=== PATIENT | female | born 1995 | race Hispanic/Latino ===

== ENCOUNTER → 2018-12-04 09:14 | Outpatient (CLI) | payer OTHER, MEDICAID, SELFPAY ==
--- NOTE | 2018-12-04 09:16 | DI.US.S_ITS ---
PROCEDURE: US OB <= 14 WEEKS FETUS INDICATIONS: DATES OUTSIDE/PRIOR DATING DATA: Last menstrual period (LMP): 10/09/18. LMP-based estimated date of delivery (ZAIRA): 07/16/19. First dating scan (date and location): 12/04/18, this examination. Estimated date of delivery (ZAIRA) from first dating scan: 07/21/19. TECHNIQUE: Real-time scanning was performed of the fetus and maternal pelvic organs, with image documentation. Endovaginal scanning was also performed to better visualize the fetus and maternal ovaries. COMPARISON: None. FINDINGS: Embryo: Single living intrauterine fetus is present with a crown-rump length measuring 1.1 cm, 7 weeks 2 days. Heart rate measures 145 beats per minute. Yolk sac visualized Measurement variability in dating: +/- 4 weeks by LMP, +/- 7 days by mean sac diameter (use before 6 weeks gestation if crown-rump length not able to be measured), +/- 5 days by crown-rump length (up to 8 weeks 6 days gestation), +/- 7 days by crown-rump length (up to 13 weeks 6 days gestation). Maternal organs: Ovaries unremarkable except for a presumed right-sided corpus luteum. Limited images through the kidneys demonstrate no hydronephrosis. IMPRESSION: Single living intrauterine fetus with gestational age of 7 weeks and 2 days by today's ultrasound measurements. This corresponds to an ZAIRA of 07/21/19, concordant with the patient's LMP as above. Dictated by: Mike Dunbar M.D. on 12/04/2018 at 10:49 Approved by: Mike Dunbar M.D. on 12/04/2018 at 10:52
== END ==
PROVIDERS: PCP Family Medicine; Visit Provider Specialist
DX: Z34.81 Encounter for supervision of other normal pregnancy, first trimester (principal); Z3A.01 Less than 8 weeks gestation of pregnancy
CPT/HCPCS: 76801

== ENCOUNTER → 2019-02-06 14:56 | Outpatient (CLI) | payer OTHER, MEDICAID, SELFPAY ==
[2019-02-06 15:26] LABS: Appearance Urine UA CLEAR; Bilirubin Urine UA NEGATIVE (NEGATIVE); Color Urine UA YELLOW; Glucose Urine UA NEGATIVE (Negative); Ketones Urine UA NEGATIVE (NEGATIVE); Leukocyte Esterase Urine UA NEGATIVE (NEGATIVE); Nitrite Urine UA NEGATIVE (Negative); Occult Blood Urine UA NEGATIVE (Negative); Protein Urine UA NEGATIVE (Negative); Specific Gravity Urine UA 1.015 (1.000-1.035); Urobilinogen Urine UA 0.2 E.U./dL (0.2)
[2019-02-06 15:29] LABS: Add Manual Diff / Slide Review NO; Basophils Absolute Auto 0 /uL (0-100); Basophils Percent Auto 0.3 % (0-2); Eosinophils Absolute Auto 100 /uL (0-450); Eosinophils Percent Auto 0.8 % (2-4); Hematocrit 35.4 % (36-46); Hemoglobin 11.8 g/dL (12.0-16.0); Lymphocytes Absolute Auto 3100 /uL (1100-4500); Lymphocytes Percent Auto 35.6 % (25-40); Mean Corpuscular HGB Conc 33.3 % (30-36); Mean Corpuscular Hemoglobin 26.9 PG (26-34); Mean Corpuscular Volume 80.8 fL (80-100); Monocytes Absolute Auto 700 /uL (0-900); Monocytes Percent Auto 8.4 % (3-14); Neutrophils Absolute Auto 4800 /uL (1500-7000); Neutrophils Percent Auto 54.9 % (50-75); Platelet Count 256 X10^3/uL (150-400); Red Blood Cell Count 4.38 X10^6/uL (4.0-5.2); Red Cell Distribution Width 13.8 % (11.6-14.8); White Blood Cell Count 8.7 X10^3/uL (4.5-11.0)
[2019-02-06 18:29] LABS: HIV 1 & 2 Ab/Ag 4th Gen Combo NEGATIVE (NEGATIVE); Hep C Virus Ab w/Reflex Quant NEGATIVE s/c (NEGATIVE); Hepatitis B Surface Antigen NEGATIVE s/c (NEGATIVE); Rubella Antibody IgG 64.3 IU/mL (>15)
[2019-02-26 11:33] LABS: RPR Screen NONREACTIVE
== END ==
PROVIDERS: PCP Family Medicine; Visit Provider Specialist
DX: Z34.81 Encounter for supervision of other normal pregnancy, first trimester (principal)
CPT/HCPCS: 36415; 80055; 81003; 82105; 82677; 84702; 86336; 86787; 86803; 86850; 86900; 86901; 87086; 87389

== ENCOUNTER → 2019-03-04 13:56 | Outpatient (CLI) | payer OTHER, MEDICAID, SELFPAY ==
--- NOTE | 2019-03-04 13:57 | DI.US.S_ITS ---
PROCEDURE: US OB >= 14 WEEKS FETUS INDICATIONS: ANATOMY OUTSIDE/PRIOR DATING DATA: Last menstrual period (LMP): 10/09/18. LMP-based estimated date of delivery (ZAIRA): 07/16/2019. First dating scan (date and location): 12/04/18. Estimated date of delivery (ZAIRA) from first dating scan: 07/21/2019. TECHNIQUE: Real-time scanning was performed of the fetus, with image documentation and biometric measurements. Endovaginal scanning: Not performed COMPARISON: [facility], , OB >= 14 WEEKS FETUS, 02/06/2019, 14:51. FINDINGS: General: A single living intrauterine gestation is present. Presentation: Breech Placenta: Placental position is anterior, without previa. Amniotic fluid index: 25 cm, normal range is 5-24 cm. heart rate: 139 beats per minute. Maternal cervical canal: 3.7 cm long. Normal lower limit is 2.5 cm. biometrics: Biparietal diameter: 5.0 cm, correlating with 21 weeks and 1 day. Head circumference: 19.3 cm, correlating with 21 weeks and 4 days. Abdominal circumference: 15.6 cm, correlating with 20 weeks and 6 days Femur length: 3.5 cm, correlating with 20 weeks and 6 days Estimated gestational age from initial scan: not applicable. Composite gestational age from present scan: 21 weeks and 1 day Estimated weight and percentile: 385 [address] the fetus within the 85th percentile. The Anatomic survey: Neuro: Ventricles are non-dilated at less than 10 mm. Cisterna magna is normal at 3-11 mm. Cerebellum is normal in size and morphology. Nuchal skin fold: Normal at less than 6 mm between 14-21 weeks gestational age. Face: Nose and lips, facial profile are normal. Spine: No evidence for spina bifida. Heart: 4-chambered heart is present, with normal ventricular outflow tracts. Diaphragm: Diaphragm is intact. Stomach: Left-sided stomach is present. Kidneys: No hydronephrosis. Normal is less than 5 mm in 2nd trimester, less than 7 mm in 3rd trimester. Cord: 3-vessel cord has orthotopic insertion. Bladder: Normal in size. Extremities: All 4 extremities identified. IMPRESSION: Single living intrauterine gestation with an estimated sonographic gestational age of approximately 21 weeks and 1 day versus approximately 20 weeks and 1 day by initial staging. Dating measurements remain concordant. Estimated weight measuring 385 g which places the fetus within the 85th percentile by [place] standards. Normal second trimester anatomic screening survey. Dictated by: Matt Vick M.D. on 03/04/2019 at 17:38 Approved by: Matt Vick M.D. on 03/04/2019 at 17:47
== END ==
PROVIDERS: PCP Family Medicine; Visit Provider Specialist
DX: Z34.82 Encounter for supervision of other normal pregnancy, second trimester (principal); Z3A.21 21 weeks gestation of pregnancy
CPT/HCPCS: 76811

== ENCOUNTER 2019-04-15 18:08 | Outpatient (CLI) | payer OTHER, MEDICAID, SELFPAY ==
[2019-04-15 18:57] LABS: Bacteria Urine Many (>30); Mucus Urine 1+ (Negative); RBC Urine 1-5/HPF (0-5/HPF); Squamous Epithelial Cell Urine >30 /HPF (0-5/HPF); Transitional Epi Cells Urine 5-10/HPF (0-5/HPF); WBC Urine 1-5/HPF (0-5/HPF)
[2019-04-15 18:58] LABS: Appearance Urine UA SL CLOUDY; Bilirubin Urine UA NEGATIVE (NEGATIVE); Color Urine UA YELLOW; Culture Indicated Urine Cult Not Indicated; Glucose Urine UA 1+ g/dL (Negative); Ketones Urine UA NEGATIVE (NEGATIVE); Leukocyte Esterase Urine UA NEGATIVE (NEGATIVE); Nitrite Urine UA NEGATIVE (Negative); Occult Blood Urine UA NEGATIVE (Negative); Protein Urine UA NEGATIVE (Negative); Specific Gravity Urine UA 1.015 (1.000-1.035); Urine Comments NOT A CLEAN CATCH; Urobilinogen Urine UA 0.2 E.U./dL (0.2)
--- NOTE | 2019-04-15 20:36 | P.TNLD_ITS ---
Visit Information Visit Information Date of evaluation: 04/15/19 Primary OB Provider: Rhonda Beckwith On-call OB Provider: Romelia Barnhart Reason for Evaluation: Yes other Comments/Additional reasons for admission: Patient having pelvic pressure PFSH Social History marital status: pets and animals: No education level: high school seatbelt use: always helmet use: Yes working smoke detector in home: Yes fire extinguisher in home: Yes carbon monox detector in home: No firearms in home: Yes Smoking Status: Never smoker during the past year weight has: increased > 10 lbs well-balanced diet: about half the time daily servings fruits/ve-1 caffeine: Yes eating out: 1-3 times/week Exam Vital Signs (past 8 hours): Generally: No acute distress Objective Labs Labs: Laboratory Results - last 24 hr 04/15/19 04/15/19 18:15 18:15 Urine Color Yellow Urine Appearance Sl cloudy Urine pH 7.0 Ur Specific [place] 1.015 Urine Protein Negative Urine Glucose (UA) 1+ H Urine Ketones Negative Urine Occult Blood Negative Urine Nitrate Negative Urine Bilirubin Negative Urine Urobilinogen 0.2 Ur Leukocyte Esterase Negative Urine RBC Cancelled 1-5/hpf Urine WBC Cancelled 1-5/hpf Ur Squamous Epith Cells Cancelled >30 /hpf H Ur Transition Epith Cell Cancelled 5-10/hpf H Ur Renal Epithelial Cell Cancelled Calcium Oxalate Crystal Cancelled Uric Acid Crystals Cancelled Triple Phos Crystals Cancelled Other Crystals Cancelled Amorphous Sediment Cancelled Urine Bacteria Cancelled Many (>30) H Hyaline Casts Cancelled Granular Casts Cancelled RBC Casts Cancelled WBC Casts Cancelled Other Casts Cancelled Urine Mucus Cancelled 1+ H Urine Trichomonas Cancelled Urine Yeast Cancelled Urine Sperm Cancelled Ur Culture Indicated? Cancelled Cult not indicated Micro UA Comment Cancelled Not a clean catch Evaluation Evaluation Baseline heart rate: 145 Variability: Moderate (11-25) monitor accelerations: Present monitor decelerations: Variable Contraction Frequency (minutes): 0 Category of Tracing: I Laboratory results: Laboratory Tests 04/15/19 04/15/19 18:15 18:15 Urine Color Yellow Urine Appearance Sl cloudy Urine pH 7.0 Ur Specific [place] 1.015 Urine Protein Negative Urine Glucose (UA) 1+ H Urine Ketones Negative Urine Occult Blood Negative Urine Nitrate Negative Urine Bilirubin Negative Urine Urobilinogen 0.2 Ur Leukocyte Esterase Negative Urine RBC Cancelled 1-5/hpf Urine WBC Cancelled 1-5/hpf Ur Squamous Epith Cells Cancelled >30 /hpf H Ur Transition Epith Cell Cancelled 5-10/hpf H Ur Renal Epithelial Cell Cancelled Calcium Oxalate Crystal Cancelled Uric Acid Crystals Cancelled Triple Phos Crystals Cancelled Other Crystals Cancelled Amorphous Sediment Cancelled Urine Bacteria Cancelled Many (>30) H Hyaline Casts Cancelled Granular Casts Cancelled RBC Casts Cancelled WBC Casts Cancelled Other Casts Cancelled Urine Mucus Cancelled 1+ H Urine Trichomonas Cancelled Urine Yeast Cancelled Urine Sperm Cancelled Ur Culture Indicated? Cancelled Cult not indicated Micro UA Comment Cancelled Not a clean catch Diagnosis, Plan/Disposition Plan/Disposition Plan: Assessment: 23-year-old at 27 weeks gestation with pelvic pressure No signs of labor Plan: Discharge to home Follow-up with Dr. Beckwith as scheduled Signs and symptoms of labor reviewed OB Disposition: home
== END 2019-04-15 19:19 | disposition home or self-care (01) ==
LOC: LABOR 18:31 → OB 04-18 09:01
PROVIDERS: Obstetrics & Gynecology; PCP Family Medicine; Visit Provider Specialist
DX: O47.02 False labor before 37 completed weeks of gestation, second trimester (principal); Z3A.26 26 weeks gestation of pregnancy
CPT/HCPCS: 59025; 81001; G0378; G0379

== ENCOUNTER → 2019-04-26 08:06 | Outpatient (CLI) | payer OTHER, MEDICAID, SELFPAY ==
[2019-04-26 09:59] LABS: Hematocrit 32.7 % (36-46); Hemoglobin 10.4 g/dL (12.0-16.0)
[2019-04-26 10:38] LABS: GTT (PREG) 1 Hour PP 50gm Dose 184 mg/dL (76-139)
== END ==
PROVIDERS: PCP Family Medicine; Visit Provider Specialist
DX: Z34.82 Encounter for supervision of other normal pregnancy, second trimester (principal); Z3A.26 26 weeks gestation of pregnancy
CPT/HCPCS: 36415; 82950; 85014; 85018

== ENCOUNTER → 2019-05-10 07:54 | Outpatient (CLI) | payer OTHER, MEDICAID, SELFPAY ==
[2019-05-10 09:23] LABS: Glucose Fasting 91 mg/dL (70-100)
[2019-05-10 11:00] LABS: Glucose 1 Hour 179 mg/dL (70-170)
[2019-05-10 11:18] LABS: Glucose Tol Interpretation INTERPRETATION
[2019-05-10 12:08] LABS: Glucose 2 Hour 132 mg/dL (70-140)
[2019-05-10 13:13] LABS: Glucose 3 Hour 129 mg/dL (70-115)
== END ==
PROVIDERS: PCP Family Medicine; Visit Provider Specialist
DX: O99.810 Abnormal glucose complicating pregnancy (principal); Z34.92 Encounter for supervision of normal pregnancy, unspecified, second trimester
CPT/HCPCS: 36415; 82951; 82952

== ENCOUNTER → 2019-06-05 10:51 | Outpatient (CLI) | payer OTHER, MEDICAID, SELFPAY ==
[2019-06-08 14:54] LABS: Bile Acids, Total 8 umol/L (< 20)
== END ==
PROVIDERS: PCP Family Medicine; Visit Provider Specialist
DX: O99.719 Diseases of the skin and subcutaneous tissue complicating pregnancy, unspecified trimester (principal); Z34.93 Encounter for supervision of normal pregnancy, unspecified, third trimester; L29.9 Pruritus, unspecified
CPT/HCPCS: 36415; 82239

== ENCOUNTER → 2019-06-14 17:01 | Outpatient (CLI) | payer OTHER, MEDICAID, SELFPAY ==
[2019-06-15 13:18] LABS: Strep Grp B PCR NEG for Grp B Strep
== END ==
PROVIDERS: PCP Family Medicine; Visit Provider Specialist
DX: Z3A.35 35 weeks gestation of pregnancy (principal)
CPT/HCPCS: 87653

== ENCOUNTER 2019-07-07 22:21 | Inpatient (IN) | payer OTHER, MEDICAID, SELFPAY ==
[2019-07-07] MEDS: LACTATED RINGERS 1,000 ML 100 ML IV (23:00)
[2019-07-07 23:57] LABS: Add Manual Diff / Slide Review NO; Basophils Absolute Auto 100 /uL (0-100); Basophils Percent Auto 0.7 % (0-2); Eosinophils Absolute Auto 100 /uL (0-450); Eosinophils Percent Auto 0.8 % (2-4); Hematocrit 28.9 % (36-46); Hemoglobin 9.3 g/dL (12.0-16.0); Lymphocytes Absolute Auto 3100 /uL (1100-4500); Lymphocytes Percent Auto 32.7 % (25-40); Mean Corpuscular HGB Conc 32.3 % (30-36); Mean Corpuscular Hemoglobin 22.4 PG (26-34); Mean Corpuscular Volume 69.3 fL (80-100); Monocytes Absolute Auto 800 /uL (0-900); Monocytes Percent Auto 8.3 % (3-14); Neutrophils Absolute Auto 5500 /uL (1500-7000); Neutrophils Percent Auto 57.5 % (50-75); Platelet Count 227 X10^3/uL (150-400); Red Blood Cell Count 4.18 X10^6/uL (4.0-5.2); White Blood Cell Count 9.6 X10^3/uL (4.5-11.0)
[2019-07-08 00:58] VITALS: BP 130/75
[2019-07-08] MEDS: FENT 2MCG/ML BUPIV 0.125% EPI 200 MCG/100 ML PLAST..BAG 8 MCG EPIDURAL (02:39)
--- NOTE | 2019-07-08 04:33 | P.HPOB_ITS ---
OB HPI Date/Time Date of admission: 07/08/19 Date Patient Seen: 07/08/19 Time Patient Seen: 04:34 History of Present Condition Chief complaint: EVAL OF LABOR : 4 Para: 2 Estimated Date of Delivery: 07/16/19 Estimated Gestational Age (weeks): 38 Narrative: Dipti Gallagher is a 23 year old female admitted in active labor History of Present care: good care, initiated at week # (11), number of visits (10) and pounds weight gain (15) Dating criteria: LMP confirmed by 1st trimester US Ultrasounds: normal mid trimester US Obstetrical complications: none Medical complications: none Preadmission Labs Blood type: O (+) positive -: Antibody screen: negative, GBS status: negative, HBsAG: negative, HIV: negative and RPR/VDLR: negative -: Chlamydia screen: not detected and Gonorrhea screen: not detected -: Rubella: immune and Varicella: immune HCAB: negative PAP: Normal Quad screen: Normal 1 hr GTT: 184 3 hr GTT: 1 hr (179), 2 hr (132) and 3 hr (129) Fasting blood glucose: 91 Prior (ies) History: 05/04/2015 40 week gestation 6 lb 11 oz male infant 07/17/2016 38 weeks gestation 7 lb male Evaluation Evaluation Baseline heart rate: 135 Variability: Moderate (11-25) monitor accelerations: Present monitor decelerations: Early Contraction Frequency (minutes): 3 Uterine Contraction Intensity: Moderate Category of Tracing: I Cervical dilation (cm): 7 Cervical effacement (%): 100 station: -1 Laboratory results: Laboratory Tests 07/07/19 07/07/19 23:00 23:00 WBC 9.6 RBC 4.18 Hgb 9.3 L Hct 28.9 L MCV 69.3 L MCH 22.4 L MCHC 32.3 RDW 19.0 H Plt Count 227 Neut % (Auto) 57.5 Lymph % (Auto) 32.7 [place] % (Auto) 8.3 Eos % (Auto) 0.8 L Baso % (Auto) 0.7 Neut # (Auto) 5500 Lymph # (Auto) 3100 [place] # (Auto) 800 Eos # (Auto) 100 Baso # (Auto) 100 Blood Type O Positive Antibody Screen Negative PFSH Social History marital status: pets and animals: No education level: high school seatbelt use: always helmet use: Yes working smoke detector in home: Yes fire extinguisher in home: Yes carbon monox detector in home: No firearms in home: Yes Smoking Status: Never smoker during the past year weight has: increased > 10 lbs well-balanced diet: about half the time daily servings fruits/ve-1 caffeine: Yes eating out: 1-3 times/week Meds Home Medications and Allergies Home Medications Medication Instructions Recorded Confirmed Type prenat.vits,nick,[id number] 1 tab PO DAILY 12/06/18 07/07/19 History Allergies Allergy/AdvReac Type Severity Reaction Status Date / Time No Known Drug Allergies Allergy Verified 12/25/18 16:12 Review of Systems Review of Systems Narrative: Good movement. No headaches, scotomata, epigastric pain. Spontaneous rupture membranes clear fluid. ROS Unobtainable: All systems reviewed & are unremarkable except as noted in HPI and below Exam Vital Signs (past 8 hours): Blood pressure 99/51, pulse of 89, temperature 36.7?- 07/08/19 00:58 Blood Pressure 130/75 Narrative Exam Narrative: HEENT exam within normal limits. Lungs are clear to auscultation and percussion. Heart is regular rate and rhythm no S3-S4 or murmurs. Abdomen is gravid. Extremities without edema and nontender. Objective Labs Result Diagrams: 07/07/19 23:00 Labs: Laboratory Results - last 24 hr 07/07/19 07/07/19 23:00 23:00 WBC 9.6 RBC 4.18 Hgb 9.3 L Hct 28.9 L MCV 69.3 L MCH 22.4 L MCHC 32.3 RDW 19.0 H Plt Count 227 Neut % (Auto) 57.5 Lymph % (Auto) 32.7 [place] % (Auto) 8.3 Eos % (Auto) 0.8 L Baso % (Auto) 0.7 Neut # (Auto) 5500 Lymph # (Auto) 3100 [place] # (Auto) 800 Eos # (Auto) 100 Baso # (Auto) 100 Blood Type O Positive Antibody Screen Negative Assessment and Plan Assessment and Plan Assessment and Plan narrative: 38 week gestation in active labor. Anticipate vaginal delivery.
[2019-07-08] MEDS: LACTATED RINGERS 1,000 ML 100 ML IV (04:57)
--- NOTE | 2019-07-08 06:12 | PM.OBPRVD ---
Labor & Delivery Delivery date: 07/08/19 Intrapartal events: None Delivery monitor: external FHT and external uterine Route of delivery: L&D Laceration Description: Labial (Left small tear near the clitoris) Delivery repair: chromic (4 0) Estimated blood loss (mL): 100 Anesthesia type: Epidural Narrative: Patient arrived on Labor and delivery in active labor. She received an epidural catheter for pain control. heart tones category 1 to category 2 throughout labor. She delivered spontaneously, over an intact perineum. The viable male infant was placed on maternal abdomen. After the cord stopped pulsating the cord was clamped, cut, and cord bloods obtained. Placenta delivered spontaneously, intact, 3 vessels. There were no cervical, vaginal, or perineal tears. A left labial tear near her clitoris was repaired with a 4 0 chromic suture. Both infant and mother doing well. Baby 1: Infant gender: Male Presentation: vertex position: Right Occiput Anterior Placenta delivery description: Spontaneous cord vessel description: 3 Vessels score (1 min): 9 score (5 min): 9 Plan for aftercare: Routine care
--- NOTE | 2019-07-08 06:17 | P.PCNOB_ITS ---
Labor & Delivery Delivery date: 07/08/19 Intrapartal events: None Estimated blood loss (mL): 100 Anesthesia type: Epidural [place] Baby 1: gender: Male Presentation: vertex position: Right Occiput Anterior Placenta delivery description: Spontaneous cord vessel description: 3 Vessels score (1 min): 9 score (5 min): 9
[2019-07-08 06:39] LABS: Anisocytosis 2+; Microcytosis 1+
[2019-07-08] MEDS: DOCUSATE 100 MG CAPSULE PO (09:57)
[2019-07-08] MEDS: FERROUS GLUCONATE 324 MG TABLET PO (09:57)
[2019-07-08] MEDS: IBUPROFEN 600 MG TABLET PO ×3 (09:57→22:03)
[2019-07-08] MEDS: LANOLIN OINT 7 GM 1 APPLIC TOP (14:41)
[2019-07-09] MEDS: IBUPROFEN 600 MG TABLET PO (04:01)
[2019-07-09 07:07] LABS: Hematocrit 26.2 % (36-46); Hemoglobin 8.3 g/dL (12.0-16.0)
--- NOTE | 2019-07-09 08:41 | PM.OBDS.1 ---
Discharge Providers Provider Date of admission: 07/07/19 22:21 Discharge Date: 07/09/19 Primary care physician: Mar Rodriguez DO Consults: 07/07/19 23:44 Consult to Anesthesiology Urgent Comment: Consulting Provider: Anesthesiologist Reason for consultation: Epidural Has provider been notified: No 07/09/19 06:11 Consult to Ingredient Scaler Helper Routine Comment: Discharge provider: Rhonda Beckwith MD Summary Hospital Course Date Patient Seen: 07/09/19 Time Patient Seen: 08:42 Procedures: Epidural catheter, vaginal delivery, repair of labial tear Hospital Course: Patient arrived on Labor and delivery in active labor. She received an epidural catheter for pain control. She had a spontaneous vaginal delivery of a viable male infant. She had a labial tear that was repaired. She did well was breast-feeding without difficulty, ambulatory, minimal pain. No headaches, scotomata, epigastric pain Peripartum Data Delivery Method: Natural Vaginal Laceration description: Labial (Left) Procedures: Epidural catheter, spontaneous vaginal delivery, repair of labial tear. complications: none [place] 1: Gender: Male Disposition of : home Discharge Diagnosis (1) Vaginal delivery: Status: Acute (2) Chronic anemia: Status: Acute Status at Discharge Cognitive/behavioral status at discharge: oriented Functional status at discharge: independent ambulation Overall status at discharge: patient is progressing back to baseline Time Spent with Patient Time attestation: Total time spent providing and/or coordinating discharge services: Time spent: Less than 30 minutes Objective Labs Result Diagrams: 07/09/19 06:32 Labs: Laboratory Results - last 24 hr 07/09/19 06:32 Hgb 8.3 L Hct 26.2 L Exam Vital Signs (past 8 hours): Blood pressure 119/66, pulse of 86, temperature 98? Narrative Exam Narrative: Abdomen is soft, nontender. Uterus is firm, at U, nontender. Extremities without edema and nontender. Patient is Rh positive, rubella immune, and received Tdap in the 3rd trimester. Discharge Plan Discharge Plan Patient Disposition: Home Discharge orders & Medications Prescriptions: Continued prenat.vits,nick,tug-[id number]-[id number] tablet 1 tab PO DAILY RF: 0 Follow up/Referrals: Rhonda Beckwith MD [Physician] - 1 Month Mar Rodriguez DO [Primary Care Provider] - Diet/Activity/Treatments Diet: Regular Activity: Nothing in vagina for 4 weeks Skin/Wound/Dressing Care Report to your healthcare provider any signs of infection, such as:: chills, fever and increased pain Discharge Data Primary Care Provider: Mar Rodriguez
== END 2019-07-09 09:28 | disposition home or self-care (01) | DRG 560 ==
PROVIDERS: Specialist; Admitting Provider Family Medicine; PCP Family Medicine; Visit Provider Family Medicine
DX: O99.02 Anemia complicating childbirth (principal); D64.9 Anemia, unspecified; O70.0 First degree perineal laceration during delivery; Z3A.38 38 weeks gestation of pregnancy; Z37.0 Single live birth
CPT/HCPCS: 01967; 36415; 59409; 84112; 85014; 85018; 85025; 86850; 86900; 86901; G0379

== ENCOUNTER 2019-07-23 11:21 | Emergency (ER) | payer OTHER, MEDICAID, SELFPAY ==
[2019-07-23 11:34] VITALS: BP 109/61; PULSE 69; RESP 14; TEMP 36.3; O2SAT 99
[2019-07-23 11:47] LABS: Bacteria Urine None Seen
--- NOTE | 2019-07-23 12:02 | DI.US.S_ITS ---
PROCEDURE: US ABDOMEN LIMITED INDICATIONS: EPIGASTRIC PAIN TECHNIQUE: Real-time scanning was performed of the abdominal and retroperitoneal organs, with image documentation. COMPARISON: None. FINDINGS: Liver: Liver is normal in size and homogeneous in echotexture. Gallbladder: Gallbladder appears normal Biliary ducts: Intrahepatic bile ducts are non-dilated. Extrahepatic bile duct caliber measures 3.0 mm. Normal is 6-7 mm or less in diameter, or 10 mm or less post-cholecystectomy. Pancreas: Visualized portions of the pancreas are sonographically normal. IVC: Intrahepatic inferior vena cava is patent. Miscellaneous: No free abdominal fluid. IMPRESSION: Normal limited abdominal ultrasound, source of epigastric pain is not seen. Dictated by: Lane Springer M.D. on 07/23/2019 at 12:39 Approved by: Lane Springer M.D. on 07/23/2019 at 12:40
--- NOTE | 2019-07-23 12:08 | ED_ITS ---
HPI - Abdominal Pain <Steven Pinedoindu [facility] - Last Filed: 07/23/19 13:32> General Chief Complaint: Abdominal Pain Stated Complaint: abdominal pain spreading to chest Time Seen by Provider: 07/23/19 11:32 Source: patient Mode of arrival: Ambulatory Limitations: no limitations History of Present Illness HPI narrative: This is a 23 year female, nonsmoker, who presents to ED with epigastric pain with nausea which started this morning. Patient is and delivered her 3rd child on 07/08/19 at without complication. Patient states initially her pain was traveling down to lower abdomen from epigastric pain but now it is radiating to upper chest and describes as sharp and burning inte rmittently and feels as something is squeezing in there. When she has pain this takes her breath away. Patient denies fever, chills, vomiting. Patient denies previous history of peptic ulcers. Last meal was last night and had not had any solid foods this morning due to nausea. Patient denies urinary symptoms such as frequency, urgency, dysuria. Patient had constipation but had large loose bowel movements this morning. Reports currently has a small amount of old, brown lochia which is not concerning at this time. Patient is currently nursing. Related Data Home Medications Medication Instructions Recorded Confirmed prenat.vits,nick,gop-[id number] 1 tab PO DAILY 12/06/18 07/23/19 Previous Rx's Medication Instructions Recorded omeprazole 20 mg PO DAILY #14 cap 07/23/19 ondansetron 4 mg PO BID-TID PRN #10 tab 07/23/19 Allergies Allergy/AdvReac Type Severity Reaction Status Date / Time No Known Drug Allergies Allergy Verified 12/25/18 16:12 Review of Systems <Steven Melchor [facility] - Last Filed: 07/23/19 13:32> Review of Systems Narrative: General: Denies fever, chills, fatigue, malaise, sweats. HEENT: Denies sinus pain, ear pain, sore throat, difficulty swallowing, dizziness. Respiratory: Denies dyspnea, cough, wheezing, hemoptysis, sputum. Cardiovascular: Denies chest pain, palpitations, orthopnea, edema. Gastrointestinal: See HPI : Denies dysuria, frequency, incontinence, hematuria, urinary retention. Musculoskeletal: Denies weakness, joint pain or bony pain. Skin: Denies rash, skin lesions, or other. Neurologic: Denies weakness, headache, numbness, change in speech, confusion, seizures, incoordination. Psychiatric: No concerning psychosocial issues. 12-point review of systems is negative except for those stated above. Patient History <KACIE Dover - Last Filed: 07/23/19 13:32> Social History marital status: pets and animals: No education level: high school seatbelt use: always helmet use: Yes working smoke detector in home: Yes fire extinguisher in home: Yes carbon monox detector in home: No firearms in home: Yes Smoking Status: Never smoker during the past year weight has: increased > 10 lbs well-balanced diet: about half the time daily servings fruits/ve-1 caffeine: Yes eating out: 1-3 times/week Smoking Status: Never smoker Substance Use Type: does not use Exam <KACIE Dover - Last Filed: 07/23/19 13:32> Narrative Exam Narrative: GEN: Alert, oriented x 3, well appearing and nourished, and in no acute distress. Head: Normal cephalic, atraumatic. No scalp or temporal tenderness, palpable mass or rash. EYES: Pupils are equal, round, and reactive to light and accommodation. E xtraocular muscles are intact bilaterally. There is no subconjunctival hemorrhage, exudate and sclera non-icteric. ENT: Bilateral auditory canals and tympanic membranes clear. Hearing grossly intact. Nose without bleeding, purulent discharge or deviation. Facial sinuses nontender to palpate. Mucous membrane moist, no mucosal lesion. Throat without erythema, tonsillar hypertrophy or exudate. Uvula in midline, airway patent. Neck: Trachea in midline. No JVD, non-tender without lymphadenopathy. No masses or thyroid megaly. Supple, non-tender and no meningeal signs. CARDIAC: Normal regular rate and rhythm without murmurs, gallops, or rubs. No chest wall tenderness. No peripheral edema, cyanosis or pallor. Capillary refill is less than 2 seconds. RESPIRATORY: Lungs are clear to auscultate bilaterally. No cough, wheezes, rales, or rhonchi. No stridor, respiratory distress, increase work of breathing, or accessary muscle used. ABD: Abdomen soft, nontender and non-distended. No guarding or rebound tenderness to palpate. Bowel sounds are normal in all 4 quadrants. There is no palpable masses or organomegaly. EXT: Full painless ROM of all extremities with no loss of sensation, strength, effusion or edema. SKIN: Warm, dry, normal color for patient. No erythema, lesions or rash over visible areas. BACK: Nontender without deformity or crepitance. No flank tenderness. NEUROLOGICAL: Alert and oriented to place, time and person. Sensation and motor function intact bilaterally. No facial droops, dysphasia. PSYCHIATRIC: Good judgement and reason, without hallucinations, abnormal affect or abnormal behaviors during the examination. Initial Vital Signs Initial Vital Signs: Vital Signs Temperature 97.3 F L 07/23/19 11:34 Pulse Rate 69 07/23/19 11:34 Respiratory Rate 14 07/23/19 11:34 Blood Pressure 109/61 07/23/19 11:34 Pulse Oximetry 99 07/23/19 11:34 <Suni Schaefer DO - Last Filed: 07/25/19 07:54> Initial Vital Signs Initial Vital Signs: Vital Signs Temperature 97.3 F L 07/23/19 11:34 Pulse Rate 69 07/23/19 11:34 Respiratory Rate 14 07/23/19 11:34 Blood Pressure 109/61 07/23/19 11:34 Pulse Oximetry 99 07/23/19 11:34 Scores <KACIE Dover - Last Filed: 07/23/19 13:32> GCS Bruneau coma scale eye opening: Spontaneous [place] coma scale verbal response: Orientated Kelin coma scale motor response: Obey commands Br[place] coma scale total score: 15 Course <KACIE Dover - Last Filed: 07/23/19 13:32> Orders Ordered: Discontinued Medications Ondansetron HCl (Zofran) 4 mg IV NOW ONE Stop: 07/23/19 12:03 Last Admin: 07/23/19 12:37 Dose: 4 mg Documented by: HUEY Pantoprazole Sodium (Protonix) 40 mg IV NOW ONE Stop: 07/23/19 12:03 Last Admin: 07/23/19 12:37 Dose: 40 mg Documented by: HUEY Vital Signs Vital signs: Vital Signs - 8 hr 07/23/19 11:34 07/23/19 12:52 Temperature 97.3 F L Pulse Rate 69 68 Respiratory Rate 14 Blood Pressure 109/61 Blood Pressure [Left Arm] 117/66 Pulse Oximetry 99 97 <Suni Schaefer DO - Last Filed: 07/25/19 07:54> Orders Ordered: Discontinued Medications Ondansetron HCl (Zofran) 4 mg IV NOW ONE Stop: 07/23/19 12:03 Last Admin: 07/23/19 12:37 Dose: 4 mg Documented by: HUEY Pantoprazole Sodium (Protonix) 40 mg IV NOW ONE Stop: 07/23/19 12:03 Last Admin: 07/23/19 12:37 Dose: 40 mg Documented by: HUEY Vital Signs Vital signs: Vital Signs - 8 hr 07/23/19 11:34 07/23/19 12:52 Temperature 97.3 F L Pulse Rate 69 68 Respiratory Rate 14 Blood Pressure 109/61 Blood Pressure [Left Arm] 117/66 Pulse Oximetry 99 97 MDM - Abdominal Pain <KACIE Dover - Last Filed: 07/23/19 13:32> Differential Diagnosis Differential diagnosis: Likely other (GERD, cholecystitis, pancreatitis, HELLP syndrome/preecclamsia) Medical Records Attestation: I reviewed the patient's medical records. Lab Data Attestation: I reviewed the patient's lab results. Result diagrams: 07/23/19 12:20 07/23/19 12:20 Labs: Lab Results 07/23/19 07/23/19 07/23/19 Range/Units 11:46 12:20 12:20 WBC 8.4 (4.5-11.0) X10^3/uL RBC 5.16 (4.0-5.2) X10^6/uL Hgb 11.2 L (12.0-16.0) g/dL Hct 35.8 L (36-46) % MCV 69.2 L (80-100) fL MCH 21.8 L (26-34) PG MCHC 31.4 (30-36) % RDW 20.2 H (11.6-14.8) % Plt Count 326 (150-400) X10^3/uL Neut % (Auto) 70.1 (50-75) % Lymph % (Auto) 20.0 L (25-40) % [place] % (Auto) 7.0 (3-14) % Eos % (Auto) 2.3 (2-4) % Baso % (Auto) 0.6 (0-2) % Neut # (Auto) 5900 (8467-5414) /uL Lymph # (Auto) 1700 (8874-7216) /uL [place] # (Auto) 600 (0-900) /uL Eos # (Auto) 200 (0-450) /uL Baso # (Auto) 0 (0-100) /uL RBC Morphology Not Reportable Poikilocytosis 1+ H Anisocytosis 2+ H Sodium 141 (137-145) mmol/L Potassium 4.1 (3.4-5.1) mmol/L Chloride 105 (98-107) mmol/L Carbon Dioxide 25 (22-32) mmol/L BUN 10 (7-17) mg/dL Creatinine 0.60 (0.52-1.04) mg/dL Estimated GFR > 60.0 (>60) mL/min BUN/Creatinine Ratio 16.7 (6-22) Glucose 94 (70-100) mg/dL Calcium 9.6 (8.4-10.2) mg/dL Total Bilirubin 0.6 (0.2-1.3) mg/dL AST 43 H (14-36) IU/L ALT 29 (<35) IU/L Alkaline Phosphatase 128 H (38-126) U/L Total Protein 8.3 H (6.3-8.2) g/dL Albumin 4.5 (3.5-5.0) g/dL Globulin 3.8 (1.7-4.1) g/dL Albumin/Globulin Ratio 1.2 (1.0-2.8) Lipase 83 (23-300) U/L Urine RBC 1-5/hpf (0-5/HPF) Urine WBC 5-10/hpf H (0-5/HPF) Ur Squamous Epith Cells 5-10 /hpf H (0-5/HPF) Urine Bacteria None seen (None) Urine Mucus 2+ H (Negative) Ur Culture Indicated? Cult not indicated Point of care testing: Urine Dip Bedside Urine Glucose Negative Bedside Urine Bilirubin ++ 2 Bedside Urine Ketone +/- 5 Urine Specific [place] 1.025 Bedside Urine Occult Blood - Negative Bedside Urine pH 6.0 Bedside Urine Protein + 30 Bedside Urine Urobilinogen +/- 1mg Bedside Urine Nitrite - Negative Bedside Urine Leukocytes +++ 500 Esterase Imaging Data US - abdomen: Radiologist's Impression: [address] [address] Ultrasound Report Signed Patient: Dipti Gallagher GMR#: [id number] : 1995Acct:[id number] Age/Sex: 23 / FDate of Service: 07/23/19 Loc: ED Accession Number: [id number] Procedure: US abdomen limited Ordering Provider: Steven Roche PROCEDURE: US ABDOMEN LIMITED INDICATIONS: EPIGASTRIC PAIN TECHNIQUE: Real-time scanning was performed of the abdominal and retroperitoneal organs, with image documentation. COMPARISON: None. FINDINGS: Liver: Liver is normal in size and homogeneous in echotexture. Gallbladder: Gallbladder appears normal Biliary ducts: Intrahepatic bile ducts are non-dilated. Extrahepatic bile duct caliber measures 3.0 mm. Normal is 6-7 mm or less in diameter, or 10 mm or less post-cholecystectomy. Pancreas: Visualized portions of the pancreas are sonographically normal. IVC: Intrahepatic inferior vena cava is patent. Miscellaneous: No free abdominal fluid. IMPRESSION: Normal limited abdominal ultrasound, source of epigastric pain is not seen. Dictated by: Lane Springer M.D. on 07/23/2019 at 12:39 Approved by: Lane Springer M.D. on 07/23/2019 at 12:40 [facility] Narrative Medical decision making narrative: This is 23-year-old female who delivered her 3rd child about 2 weeks ago without complications presents to ED with epigastric pain with nausea. Ultrasound test was negative for cholecystitis or pancreatitis. Considered preeclampsia and HELLP syndrome but Patient's vital signs stable without hypertension. Patient denies headache. Normal platelet counts, no leukocytosis. Mild elevation in tests such as alkaline phosphatase of 128 and AST of 43. Urine test shows 5-10 of WBC and squamous cell with POC test for +++ leuko site is esterase with negative nitrite. Urine is pending for culture. Patient felt improved after omeprazole and and Zofran. Her symptoms are likely due to acid reflux. Patient advised to follow-up with PCP if for elevated liver function test and discharged to home with same medications. Patient advised to stay clear liquid for next 12-24 hours and advance to bland diet. Return precautions were discussed with patient patient verbalized understanding and agrees with the treatment plan. <Suni Schaefer DO - Last Filed: 07/25/19 07:54> Lab Data Labs: Lab Results 07/23/19 07/23/19 07/23/19 Range/Units 11:46 12:20 12:20 WBC 8.4 (4.5-11.0) X10^3/uL RBC 5.16 (4.0-5.2) X10^6/uL Hgb 11.2 L (12.0-16.0) g/dL Hct 35.8 L (36-46) % MCV 69.2 L (80-100) fL MCH 21.8 L (26-34) PG MCHC 31.4 (30-36) % RDW 20.2 H (11.6-14.8) % Plt Count 326 (150-400) X10^3/uL Neut % (Auto) 70.1 (50-75) % Lymph % (Auto) 20.0 L (25-40) % [place] % (Auto) 7.0 (3-14) % Eos % (Auto) 2.3 (2-4) % Baso % (Auto) 0.6 (0-2) % Neut # (Auto) 5900 (4488-7157) /uL Lymph # (Auto) 1700 (0610-3769) /uL [place] # (Auto) 600 (0-900) /uL Eos # (Auto) 200 (0-450) /uL Baso # (Auto) 0 (0-100) /uL RBC Morphology Not Reportable Poikilocytosis 1+ H Anisocytosis 2+ H Sodium 141 (137-145) mmol/L Potassium 4.1 (3.4-5.1) mmol/L Chloride 105 (98-107) mmol/L Carbon Dioxide 25 (22-32) mmol/L BUN 10 (7-17) mg/dL Creatinine 0.60 (0.52-1.04) mg/dL Estimated GFR > 60.0 (>60) mL/min BUN/Creatinine Ratio 16.7 (6-22) Glucose 94 (70-100) mg/dL Calcium 9.6 (8.4-10.2) mg/dL Total Bilirubin 0.6 (0.2-1.3) mg/dL AST 43 H (14-36) IU/L ALT 29 (<35) IU/L Alkaline Phosphatase 128 H (38-126) U/L Total Protein 8.3 H (6.3-8.2) g/dL Albumin 4.5 (3.5-5.0) g/dL Globulin 3.8 (1.7-4.1) g/dL Albumin/Globulin Ratio 1.2 (1.0-2.8) Lipase 83 (23-300) U/L Urine RBC 1-5/hpf (0-5/HPF) Urine WBC 5-10/hpf H (0-5/HPF) Ur Squamous Epith Cells 5-10 /hpf H (0-5/HPF) Urine Bacteria None seen (None) Urine Mucus 2+ H (Negative) Ur Culture Indicated? Cult not indicated Point of care testing: Urine Dip Bedside Urine Glucose Negative Bedside Urine Bilirubin ++ 2 Bedside Urine Ketone +/- 5 Urine Specific [place] 1.025 Bedside Urine Occult Blood - Negative Bedside Urine pH 6.0 Bedside Urine Protein + 30 Bedside Urine Urobilinogen +/- 1mg Bedside Urine Nitrite - Negative Bedside Urine Leukocytes +++ 500 Esterase Discharge Plan Departure Patient Disposition: Home Clinical Impression: Acute epigastric pain, Elevated liver function tests Discharge Date/Time: 07/23/19 13:32 Activity Restrictions/Additional Instructions: You have been diagnosed with [epigastric pain and nausea. Ultrasound test does not show pancreatitis or gallbladder infection/stones. Blood tests shows mild anemia and mild elevation in liver function test. Otherwise your physical exam was benign. Your symptoms improved after the medication. Please increase clear liquid intake and advance your diet as bland for next couple of days.]. What to do: *Take your medications as directed. Please take Zofran as needed for nausea and omeprazole daily for next couple of weeks from tomorrow. This medication were transmitted to [facility]. *Follow up with your primary care provider in 2-3 days, call for an appointment. Please follow-up with OB doctor as scheduled. Let them know you were seen in the ED and that we asked you to be seen in follow up. *Return to ED if you have any new, worsening, or concerning symptoms, such as [chest pain, breathing difficulty, unable to tolerate fluids, severe pain, fever or any acute concerns]. Prescriptions: New ondansetron 4 mg tablet,disintegrating 4 mg PO BID-TID PRN (Reason: nausea and vomiting) Qty: 10 RF: 0 omeprazole 20 mg capsule,delayed release(DR/EC) 20 mg PO DAILY Qty: 14 RF: 0 No Action prenat.vits,nick,qhr-oaib-uhewl tablet 1 tab PO DAILY RF: 0 Referrals: Mar Rodriguez DO [Primary Care Provider] -
[2019-07-23 12:10] LABS: RBC Urine 1-5/HPF (0-5/HPF)
[2019-07-23 12:11] LABS: Culture Indicated Urine Cult Not Indicated; Mucus Urine 2+ (Negative); Squamous Epithelial Cell Urine 5-10 /HPF (0-5/HPF); WBC Urine 5-10/HPF (0-5/HPF)
[2019-07-23 12:26] LABS: Add Manual Diff / Slide Review NO; Basophils Absolute Auto 0 /uL (0-100); Basophils Percent Auto 0.6 % (0-2); Eosinophils Absolute Auto 200 /uL (0-450); Eosinophils Percent Auto 2.3 % (2-4); Hematocrit 35.8 % (36-46); Hemoglobin 11.2 g/dL (12.0-16.0); Lymphocytes Absolute Auto 1700 /uL (1100-4500); Mean Corpuscular HGB Conc 31.4 % (30-36); Mean Corpuscular Hemoglobin 21.8 PG (26-34); Mean Corpuscular Volume 69.2 fL (80-100); Monocytes Absolute Auto 600 /uL (0-900); Neutrophils Absolute Auto 5900 /uL (1500-7000); Neutrophils Percent Auto 70.1 % (50-75); Platelet Count 326 X10^3/uL (150-400); Red Blood Cell Count 5.16 X10^6/uL (4.0-5.2); Red Cell Distribution Width 20.2 % (11.6-14.8); White Blood Cell Count 8.4 X10^3/uL (4.5-11.0)
[2019-07-23 12:36] LABS: Alanine Aminotransferase 29 IU/L (<35); Albumin 4.5 g/dL (3.5-5.0); Albumin Globulin Ratio 1.2 (1.0-2.8); Alkaline Phosphatase 128 U/L (38-126); Aspartate Aminotransferase 43 IU/L (14-36); BUN Creatinine Ratio 16.7 (6-22); Bilirubin Total 0.6 mg/dL (0.2-1.3); Blood Urea Nitrogen 10 mg/dL (7-17); Calcium 9.6 mg/dL (8.4-10.2); Carbon Dioxide 25 mmol/L (22-32); Chloride 105 mmol/L (98-107); Estimated Glomerular Filt Rate > 60.0 mL/min (>60); Globulin 3.8 g/dL (1.7-4.1); Glucose 94 mg/dL (70-100); HEMOLYSIS < 15 (0-50); Lipase 83 U/L (23-300); Potassium 4.1 mmol/L (3.4-5.1); Sodium 141 mmol/L (137-145); Total Protein 8.3 g/dL (6.3-8.2)
[2019-07-23] MEDS: PANTOPRAZOLE 40 MG VIAL IV (12:37)
[2019-07-23] MEDS: ONDANSETRON 4 MG/2 ML INJ IV (12:37)
[2019-07-23 12:40] LABS: Poikilocytosis 1+
[2019-07-23 12:41] LABS: Anisocytosis 2+
[2019-07-23 12:52] VITALS: BP 117/66; PULSE 68; O2SAT 97
== END 2019-07-23 13:32 | disposition home or self-care (01) ==
PROVIDERS: Emergency Provider Nurse Practitioner Family; PCP Family Medicine
DX: R10.13 Epigastric pain (principal); R94.5 Abnormal results of liver function studies; R07.9 Chest pain, unspecified
CPT/HCPCS: 36415; 76705; 80053; 81003; 81015; 83690; 85025; 87086; 93005; 96374; 96375; 99284; 99285; C9113; J2405

== ENCOUNTER → 2020-06-07 11:05 | Outpatient (CLI) | payer OTHER, MEDICAID, SELFPAY | PROVIDERS: PCP Family Medicine; Referring Provider Physician Assistant; Visit Provider Physician Assistant | DX: J02.9 Acute pharyngitis, unspecified (principal) | CPT/HCPCS: 87070; 87077; 87147 ==

== ENCOUNTER → 2020-07-07 12:21 | Outpatient (CLI) | payer OTHER, MEDICAID, SELFPAY ==
--- NOTE | 2020-07-07 12:23 | DI.RAD.S_ITS ---
PROCEDURE: XR SHOULDER RT MIN 2V INDICATIONS: fall, right shoulder strain TECHNIQUE: 3 views of the shoulder were acquired. COMPARISON: None. FINDINGS: Bones: No fractures or dislocations. Coracoclavicular and acromioclavicular intervals are maintained. No suspicious bony lesions. Visualized ribs appear intact. Soft tissues: No suspicious soft tissue calcifications. IMPRESSION: Right shoulder without acute fracture or dislocation. Dictated by: Matt Vick M.D. on 07/07/2020 at 13:42 Approved by: Matt Vick M.D. on 07/07/2020 at 13:48
== END ==
PROVIDERS: PCP Family Medicine; Referring Provider Physician Assistant; Visit Provider Physician Assistant
DX: S46.911A Strain of unspecified muscle, fascia and tendon at shoulder and upper arm level, right arm, initial encounter (principal); M54.9 Dorsalgia, unspecified; W19.XXXA Unspecified fall, initial encounter
CPT/HCPCS: 73030

== ENCOUNTER → 2020-07-23 08:25 | Outpatient (CLI) | payer OTHER, MEDICAID, SELFPAY ==
[2020-07-23 09:33] LABS: Add Manual Diff / Slide Review NO; Basophils Absolute Auto 0 /uL (0-100); Basophils Percent Auto 0.4 % (0-2); Eosinophils Absolute Auto 200 /uL (0-450); Eosinophils Percent Auto 2.3 % (2-4); Hematocrit 37.2 % (36-46); Hemoglobin 12.5 g/dL (12.0-16.0); Lymphocytes Absolute Auto 3700 /uL (1100-4500); Lymphocytes Percent Auto 45.5 % (25-40); Mean Corpuscular HGB Conc 33.5 % (30-36); Mean Corpuscular Hemoglobin 27.9 PG (26-34); Mean Corpuscular Volume 83.1 fL (80-100); Monocytes Absolute Auto 600 /uL (0-900); Monocytes Percent Auto 7.8 % (3-14); Neutrophils Absolute Auto 3500 /uL (1500-7000); Platelet Count 254 X10^3/uL (150-400); Red Blood Cell Count 4.48 X10^6/uL (4.0-5.2); Red Cell Distribution Width 15.8 % (11.6-14.8)
[2020-07-23 09:35] LABS: Appearance Urine UA CLEAR; Bilirubin Urine UA NEGATIVE (NEGATIVE); Color Urine UA YELLOW; Glucose Urine UA NEGATIVE (Negative); Ketones Urine UA NEGATIVE (NEGATIVE); Leukocyte Esterase Urine UA NEGATIVE (NEGATIVE); Nitrite Urine UA NEGATIVE (Negative); Occult Blood Urine UA NEGATIVE (Negative); Protein Urine UA NEGATIVE (Negative); Specific Gravity Urine UA <=1.005 (1.000-1.035); Urobilinogen Urine UA 0.2 E.U./dL (0.2)
[2020-07-23 09:43] LABS: pH Urine UA 6.5 (4.5-8.0)
[2020-07-23 15:36] LABS: Urine N gonorrhoeae NOT DETECTED
[2020-07-23 18:31] LABS: Urine Chlamydia NOT DETECTED
[2020-07-24 03:08] LABS: RPR Screen Non Reactive (Non Reactive)
[2020-07-24 12:38] LABS: Varicella IgG Antibody 569 index (Immune >165)
[2020-07-24 15:10] LABS: Hepatitis B Surface Antigen NEGATIVE s/c (NEGATIVE); Rubella Antibody IgG 50.6 IU/mL (>15)
[2020-07-24 15:24] LABS: HIV 1 & 2 Ab/Ag 4th Gen Combo NEGATIVE (NEGATIVE); Hep C Virus Ab w/Reflex Quant NEGATIVE s/c (NEGATIVE)
== END ==
PROVIDERS: Referring Provider Specialist; Visit Provider Specialist
DX: Z34.81 Encounter for supervision of other normal pregnancy, first trimester (principal)
CPT/HCPCS: 36415; 80055; 81003; 86787; 86803; 86850; 86900; 86901; 87086; 87389; 87491; 87591

== ENCOUNTER → 2020-07-27 10:28 | Outpatient (CLI) | payer OTHER, MEDICAID, SELFPAY ==
[2020-07-27 11:32] LABS: Cholesterol 203 mg/dL (140-199); HDL Cholesterol 67 mg/dL (40-60); LDL Cholesterol Calculated 111 mg/dL (<100); Triglycerides 126 mg/dL (35-150)
== END ==
PROVIDERS: PCP Registered Nurse; Referring Provider Registered Nurse; Visit Provider Registered Nurse
DX: Z82.49 Family history of ischemic heart disease and other diseases of the circulatory system (principal)
CPT/HCPCS: 36415; 80061

== ENCOUNTER → 2020-10-08 09:23 | Outpatient (CLI) | payer OTHER, MEDICAID, SELFPAY ==
[2020-10-10 22:12] LABS: AFP, Serum 21.8 ng/mL (.); Calc Gestational Age Ultrasound (.); Estriol, Free 1.28 ng/mL (.); Inhibin A, Dimeric 109.49 pg/mL (.); Inhibin A, MoM 0.75 (.); Maternal Ethnicity Other (.); Maternal Weight 166 lbs (.); Number of Fetuses No (.); OSBR Risk 1 IN 10000 (.); Results Report (.); Test Results *Screen Negative* (.); hCG, MoM 0.29 (.); hCG, Serum 7991 mIU/mL (.)
== END ==
PROVIDERS: PCP Registered Nurse; Referring Provider Specialist; Visit Provider Specialist
DX: Z34.82 Encounter for supervision of other normal pregnancy, second trimester (principal); Z3A.17 17 weeks gestation of pregnancy
CPT/HCPCS: 36415; 82105; 82677; 84702; 86336

== ENCOUNTER → 2020-10-26 12:06 | Outpatient (CLI) | payer OTHER, MEDICAID, SELFPAY ==
--- NOTE | 2020-10-26 12:07 | DI.US.S_ITS ---
PROCEDURE: US OB >= 14 WEEKS FETUS INDICATIONS: ANATOMY OUTSIDE/PRIOR DATING DATA: Last menstrual period (LMP): 05/12/2020 . LMP-based estimated date of delivery (ZAIRA): 02/16/2021 . First dating scan (date and location): 07/23/2020, [facility] . Estimated date of delivery (ZAIRA) from first dating scan: 03/13/2021. TECHNIQUE: Real-time scanning was performed of the fetus, with image documentation and biometric measurements. COMPARISON: [facility], US, OB >= 14 WEEKS FETUS, 10/08/2020, 9:15. FINDINGS: General: A single living intrauterine gestation is present. Presentation: Vertex. Placenta: Placental position is anterior, without previa. Amniotic fluid index: 16.7 cm, normal range is 5-24 cm. heart rate: 136 beats per minute. Maternal cervical canal: 4.3 cm long. Normal lower limit is 2.5 cm. biometrics: Biparietal diameter: 5.0 cm, 21 week 0 day Head circumference: 18.7 cm, 21 week 0 day Abdominal circumference: 15.2 cm, 20 week 3 day Femur length: 3.2 cm, 20 week, 0 day Estimated gestational age from initial scan: 20 week 2 day. Composite gestational age from present scan: 20 week 4 day Estimated weight and percentile: 345 g, 46 percentile Measurement variability for biometric dating: +/- 7 days from 14 weeks to 15 weeks 6 days gestation, +/- 10 days from 16 weeks to 21 weeks 6 days gestation, +/- 2 weeks from 22 weeks to 27 weeks 6 days gestation, +/- 3 weeks for 28 weeks gestation or later. weight reference: 4500 g or EFW >90/95% is considered macrosomia or large for gestational age. EFW <10% is small for gestational age. EFW 5% or less is considered intra-uterine growth restriction. Anatomic survey: Neuro: Ventricles are non-dilated at less than 10 mm. Cisterna magna is normal at 3-11 mm. Cerebellum is normal in size and morphology. Nuchal skin fold: Normal at less than 6 mm between 14-21 weeks gestational age. Face: Nose and lips, facial profile are normal. Spine: No evidence for spina bifida. Heart: 4-chambered heart is present, with normal ventricular outflow tracts. Diaphragm: Diaphragm is intact. Stomach: Left-sided stomach is present. Kidneys: No hydronephrosis. Normal is less than 5 mm in 2nd trimester, less than 7 mm in 3rd trimester. Cord: 3-vessel cord has orthotopic insertion. Bladder: Normal in size. Extremities: All 4 extremities identified. IMPRESSION: Single live intrauterine consistent with 20 week 4 day gestation Dictated by: Boy Jordan M.D. on 10/26/2020 at 13:35 Approved by: Boy Jordan M.D. on 10/26/2020 at 13:46
== END ==
PROVIDERS: PCP Registered Nurse; Referring Provider Specialist; Visit Provider Specialist
DX: Z34.82 Encounter for supervision of other normal pregnancy, second trimester (principal); Z3A.20 20 weeks gestation of pregnancy
CPT/HCPCS: 76811

== ENCOUNTER → 2020-11-24 17:42 | Outpatient (CLI) | payer OTHER, MEDICAID, SELFPAY ==
[2020-11-24 18:08] LABS: COVID19 -Nasal RAPID Negative (Negative)
== END ==
PROVIDERS: PCP Registered Nurse; Visit Provider Student in an Organized Health Care Education/Training Program
DX: J02.9 Acute pharyngitis, unspecified (principal)
CPT/HCPCS: 87070; 87635

== ENCOUNTER → 2020-12-30 12:32 | Outpatient (CLI) | payer OTHER, MEDICAID, SELFPAY ==
[2020-12-30 14:53] LABS: Hematocrit 31.2 % (36-46)
[2020-12-30 17:55] LABS: GTT (PREG) 1 Hour PP 50gm Dose 193 mg/dL (76-139)
== END ==
PROVIDERS: PCP Registered Nurse; Referring Provider Specialist; Visit Provider Specialist
DX: Z34.82 Encounter for supervision of other normal pregnancy, second trimester (principal); Z3A.25 25 weeks gestation of pregnancy
CPT/HCPCS: 36415; 82950; 85014; 85018

== ENCOUNTER 2021-01-09 18:52 | Outpatient (CLI) | payer OTHER, MEDICAID, SELFPAY ==
[2021-01-09 19:40] LABS: Bacteria Urine None Seen; RBC Urine None Seen (0-5/HPF)
[2021-01-09 19:45] LABS: Appearance Urine UA CLEAR; Bilirubin Urine UA NEGATIVE (NEGATIVE); Color Urine UA YELLOW; Glucose Urine UA NEGATIVE (Negative); Ketones Urine UA NEGATIVE (NEGATIVE); Leukocyte Esterase Urine UA NEGATIVE (NEGATIVE); Nitrite Urine UA NEGATIVE (Negative); Occult Blood Urine UA NEGATIVE (Negative); Protein Urine UA NEGATIVE (Negative); Specific Gravity Urine UA <=1.005 (1.000-1.035); Urobilinogen Urine UA 0.2 E.U./dL (0.2)
[2021-01-09 20:04] LABS: Culture Indicated Urine Cult Not Indicated; Squamous Epithelial Cell Urine 5-10 /HPF (0-5/HPF); WBC Urine 0-1/HPF (0-5/HPF)
--- NOTE | 2021-01-15 16:36 | DIET.PN ---
Initial Gestational Diabetes Assessment Dx: Gestational Diabetes ZAIRA: 03/13/21 31 weeks 6 days Provider: Amena Dipti presents today for initial assessment with partner, Hindu. Denies any PMH of GDM. Endorses FH of T2DM potentially with maternal Gma and PDM with mother. States her main concern today is to learn what to eat. States she has been researching GDM online and is worried about impact on baby. She is having a girl. States she has been trying to eat smaller more frequent meals. Has reduced bread intake. Trying to avoid sugars. Diet Recall: 11a-12p: 6oz meat with 3/4 c rice or cereal with whole milk or 2 eggs with toast and avocado (15-70g CHO) snack: multiple snack times; handful chips, 2-3 nanci crackers (15-40g CHO ea) 5-6p: 2-3 chx taquitos with veg or meat and veg stir ames or hamburger helper x 1c (0-45g CHO) 8-9pm: crackers or take-out on occasion (20-50+ g CHO) 12a: cereal (70g CHO) Beverages: 80-128 oz water, 10-12 oz milk (12-15g CHO), coffee with almond milk and white cho powder, 1-2 x per week juice or soda Anthropometrics: Ht: 62 Wt: 181# prepg wt: 156# Wt changes: +25# prepg BMI: 28.5 Rec wt gain: 15-25# Recs: sustain current weight for remainder preg Physical Activity: No program. Reported bed rest d/t early contractions. Self-Monitoring Blood Glucose: No current blood sugar monitoring. Main barrier: back order of insurance covered meters. [facility] pharmacy is working on getting coverage for a different brand. Today we discussed [id number]-bdhyim options. Labs: 1 hour 50 mg/dL H Medications: PNV Nutrition Rx: Carbohydrates: Daily: 180-195 g Meal: 45g lunch and dinner; 30g breakfast Snack: 15-30g Nutrition Diagnosis: - Excessive CHO intake r/t nutrition knowledge deficit with new dx GDM aeb diet recall and pt report - Altered nutrition related lab value r/t GDM dx aeb recent OGTT Intervention: Provided evidence based medical nutrition therapy for GDM. Dipti was very receptive. Provided appropriate educational handouts. Discussed the following topics: - GDM pathophyiology and impact of hyperglycemia on mom and baby - Risk for T2DM for mom and baby in the future - Ways to reduce risk T2DM - Plate Method, meal timing, carb counting, pairing macronutrients and spreading out CHO for better BG mgmnt - BG goals (FBG: <95 and 1 hour <140 mg/dL); importance of checking BG 4x per day (FBG and pc) - Impact of macronutrients on BG - Rec servings for CHO at meals and snacks - Brainstormed appropriate meal plan based on her food preferences - Role of physical activity and following provider guidelines for safety - Blood glucose monitoring options for meter Goals: - Switch cereal choices to lower carb and higher protein option (or add protein) - If ordering oatmeal, add eggs for protein - Research meters and try to get one in the next few days - Bring meter and BG to next appt Follow-up: ARTURO FREDERICK follow-up in one week Gini Logan RDN, OTONIEL Certified Diabetes Care and Home Care Liaison T: [phone] F: [phone] [email or web address] Thank you for this referral
== END 2021-01-09 20:00 | disposition home or self-care (01) ==
LOC: LABOR 19:10 → OB 01-12 07:44
PROVIDERS: PCP Registered Nurse; Referring Provider Specialist; Visit Provider Specialist
DX: O47.03 False labor before 37 completed weeks of gestation, third trimester (principal); O24.419 Gestational diabetes mellitus in pregnancy, unspecified control; Z3A.31 31 weeks gestation of pregnancy
CPT/HCPCS: 59025; 81001; G0378; G0379

== ENCOUNTER → 2021-01-15 13:39 | Outpatient (CLI) | payer OTHER, MEDICAID, SELFPAY | PROVIDERS: PCP Registered Nurse; Referring Provider Registered Nurse; Visit Provider Registered Nurse | DX: O24.419 Gestational diabetes mellitus in pregnancy, unspecified control (principal); Z71.3 Dietary counseling and surveillance | CPT/HCPCS: 97802 ==

== ENCOUNTER → 2021-02-12 15:09 | Outpatient (CLI) | payer OTHER, MEDICAID, SELFPAY ==
[2021-02-13 15:46] LABS: Strep Grp B PCR NEG for Grp B Strep
== END ==
PROVIDERS: PCP Registered Nurse; Visit Provider Specialist
DX: Z34.83 Encounter for supervision of other normal pregnancy, third trimester (principal); Z3A.35 35 weeks gestation of pregnancy
CPT/HCPCS: 87653

== ENCOUNTER 2021-02-13 14:46 | Outpatient (CLI) | payer OTHER, MEDICAID, SELFPAY ==
--- NOTE | 2021-02-13 15:31 | PM.OBTRLD ---
Visit Information Visit Information Date of evaluation: 02/13/21 Primary OB Provider: Rhonda Beckwith On-call OB Provider: Romelia Barnhart Reason for Evaluation: Yes pre-term labor Comments/Additional reasons for admission: Patient is a 25-year-old 4 para 3 at 36 weeks gestation who presented with contractions since last evening. She felt that they were getting closer together and stronger. No leakage of fluid or vaginal bleeding. She has felt decreased movement today. [facility] Medical History Anemia Back pain Depression Family history of heart disease HSV (herpes simplex virus) anogenital infection (~2014) Nose fracture Otitis media Pharyngitis Right shoulder strain (spontaneous vaginal delivery) (~05/04/15) (spontaneous vaginal delivery) (~07/17/16) (spontaneous vaginal delivery) (~07/08/19) Vaginal delivery Family History Mother Hyperlipidemia Hypertension Pre-diabetes Depression Anxiety Father Family estrangement Unknown whether patient has any health problems Grandmother Diabetes mellitus Grandfather Cancer Grandmother Family estrangement Unknown whether patient has any health problems Grandfather Unknown whether patient has any health problems Family estrangement Sister Migraine Family/Other Primary cancer of bone marrow Other Family history of heart disease Social History marital status: number of children: 3 household members: spouse and children lives independently: Yes pets and animals: No education level: high school occupational status: employed current occupational exposures/hazards: Yes Previous occupational history: [facility] special berto needs: No seatbelt use: always helmet use: Yes working smoke detector in home: Yes fire extinguisher in home: Yes carbon monox detector in home: No firearms in home: Yes Smoking Status: Never smoker second hand exposure: No alcohol intake: former (pre- : occasional use ) substance use type: does not use during the past year weight has: increased > 10 lbs well-balanced diet: about half the time daily servings fruits/ve-1 caffeine: Yes eating out: 1-3 times/week Evaluation Evaluation Baseline heart rate: 135 Variability: Moderate (11-25) monitor accelerations: Present Monitor Decelerations: Absent Contraction Frequency (minutes): 10 Uterine Contraction Intensity: Mild Category of Tracing: Reactive Diagnosis, Plan/Disposition Plan/Disposition Plan: Assessment: 25-year-old 4 para 3 at 36 weeks gestation, no labor Reactive nonstress test Plan: Discharged to home Follow-up next week with Dr. Beckwith Signs and symptoms of labor reviewed OB Disposition: home
== END 2021-02-13 15:30 | disposition home or self-care (01) ==
LOC: OB 02-15 07:07
PROVIDERS: PCP Registered Nurse; Referring Provider Obstetrics & Gynecology; Visit Provider Obstetrics & Gynecology
DX: O47.03 False labor before 37 completed weeks of gestation, third trimester (principal); O36.8130 Decreased fetal movements, third trimester, not applicable or unspecified; Z3A.36 36 weeks gestation of pregnancy
CPT/HCPCS: 59025; G0378; G0379

== ENCOUNTER 2021-02-25 21:11 | Observation (INO) | payer OTHER, MEDICAID, SELFPAY ==
--- NOTE | 2021-02-25 22:43 | P.TNLD_ITS ---
Visit Information Visit Information Date of evaluation: 02/25/21 Primary OB Provider: Rhonda Beckwith On-call OB Provider: Mani Gunn Reason for Evaluation: Yes rule out labor Comments/Additional reasons for admission: Patient presents this evening with strengthening contractions now at 37+ 5 weeks gestational age. She is experience no leakage of fluid or bleeding and her baby is active. FORMERLY [facility], [facility] Medical History Anemia Back pain Depression Family history of heart disease HSV (herpes simplex virus) anogenital infection (~2014) Nose fracture Otitis media Pharyngitis Right shoulder strain (spontaneous vaginal delivery) (~05/04/15) (spontaneous vaginal delivery) (~07/17/16) (spontaneous vaginal delivery) (~07/08/19) Vaginal delivery Family History Mother Hyperlipidemia Hypertension Pre-diabetes Depression Anxiety Father Family estrangement Unknown whether patient has any health problems Grandmother Diabetes mellitus Grandfather Cancer Grandmother Family estrangement Unknown whether patient has any health problems Grandfather Unknown whether patient has any health problems Family estrangement Sister Migraine Family/Other Primary cancer of bone marrow Other Family history of heart disease Social History marital status: number of children: 3 household members: spouse and children lives independently: Yes pets and animals: No education level: high school occupational status: employed current occupational exposures/hazards: Yes Previous occupational history: [facility] special berto needs: No seatbelt use: always helmet use: Yes working smoke detector in home: Yes fire extinguisher in home: Yes carbon monox detector in home: No firearms in home: Yes Smoking Status: Never smoker second hand exposure: No alcohol intake: former (pre- : occasional use ) substance use type: does not use during the past year weight has: increased > 10 lbs well-balanced diet: about half the time daily servings fruits/ve-1 caffeine: Yes eating out: 1-3 times/week Exam Manual OB Exam: dilated (1-2), effaced 50%, station -2 and other (Posterior, intermediate) Uterus Location (Fundal Height): 38 Presentation: vertex Estimated Weight (lbs): 8 Evaluation Evaluation Baseline heart rate: 135 Variability: Moderate (11-25) monitor accelerations: Present Monitor Decelerations: Absent Contraction Frequency (minutes): 5 Uterine Contraction Intensity: Mild Category of Tracing: Reactive Status: Category l Cervical dilation (cm): 2 Cervical effacement (%): 50 station: -2 Comments: No cervical change noted over 1 hours of observation on the BC. Diagnosis, Plan/Disposition Final Diagnosis (1) : Status: Acute Plan/Disposition Plan: Patient appears to be in prodromal labor. Options discussed and patient chooses to have IM MS 4 mg and Vistaril 25 mg IM x 1. Counseled re: labor precautions. F/U for scheduled BRUCE visit or PRN. OB Disposition: home
[2021-02-25] MEDS: MORPHINE 4 MG/ML INJ IM (23:38)
[2021-02-25] MEDS: hydrOXYzine 50 MG/ML INJ 25 MG IM (23:39)
== END 2021-02-26 00:01 | disposition home or self-care (01) ==
LOC: LABOR 21:14
PROVIDERS: Admitting Provider Obstetrics & Gynecology; PCP Registered Nurse; Referring Provider Obstetrics & Gynecology; Visit Provider Obstetrics & Gynecology
DX: O24.419 Gestational diabetes mellitus in pregnancy, unspecified control (principal); Z3A.37 37 weeks gestation of pregnancy
CPT/HCPCS: 59025; 96372; G0378; G0379; J2270; J3410

== ENCOUNTER 2021-03-02 05:08 | Inpatient (IN) | payer OTHER, MEDICAID, SELFPAY ==
[2021-03-02] MEDS: LACTATED RINGERS 1,000 ML 100 ML IV ×2 (08:43→09:59)
[2021-03-02 08:45] LABS: Add Manual Diff / Slide Review NO; Basophils Absolute Auto 0 /uL (0-100); Basophils Percent Auto 0.4 % (0-2); Eosinophils Absolute Auto 0 /uL (0-450); Eosinophils Percent Auto 0.4 % (2-4); Hematocrit 33.2 % (36-46); Hemoglobin 10.4 g/dL (12.0-16.0); Lymphocytes Absolute Auto 2700 /uL (1100-4500); Lymphocytes Percent Auto 26.5 % (25-40); Mean Corpuscular HGB Conc 31.2 % (30-36); Mean Corpuscular Hemoglobin 22.7 PG (26-34); Mean Corpuscular Volume 72.7 fL (80-100); Monocytes Absolute Auto 700 /uL (0-900); Monocytes Percent Auto 6.4 % (3-14); Neutrophils Absolute Auto 6900 /uL (1500-7000); Neutrophils Percent Auto 66.3 % (50-75); Platelet Count 224 X10^3/uL (150-400); Red Blood Cell Count 4.56 X10^6/uL (4.0-5.2); Red Cell Distribution Width 17.7 % (11.6-14.8); White Blood Cell Count 10.4 X10^3/uL (4.5-11.0)
[2021-03-02 08:52] VITALS: BP 123/74
[2021-03-02 09:12] LABS: COVID19 - ADMIT (NP swab/PCR) Negative (Negative)
--- NOTE | 2021-03-02 12:32 | P.HPOB_ITS ---
OB HPI Date/Time Date of admission: 03/02/21 Date Patient Seen: 03/02/21 Time Patient Seen: 08:00 History of Present Condition Chief complaint: Evaluation of Labor : 5 Para: 3 Estimated Date of Delivery: 03/14/21 Estimated Gestational Age (weeks): 38 Narrative: Dipti Gallagher is a 25 year old female admitted in active labor History of Present care: good care, initiated at week # (6), number of visits (10) and pounds weight gain (18) Dating criteria: based on 1st trimester US only Ultrasounds: normal mid trimester US Obstetrical complications: gestational diabetes (Diet controlled) Medical complications: other (Patient and family had COVID in April) Preadmission Labs Blood type: O (+) positive -: Antibody screen: negative, GBS status: negative, HBsAG: negative, HIV: negative, HSV 1: positive and RPR/VDLR: negative -: Chlamydia screen: not detected and Gonorrhea screen: not detected -: Rubella: immune and Varicella: immune HCAB: negative Quad screen: Normal 1 hr GTT: 193 Narrative: Patient did not have 3 hour glucose tolerance test just diet and blood sugar monitoring. Patient never produced her blood sugar log but stated her blood sugars were all good. Prior (ies) History: 07/04/2014 40 week gestation 6 lb 11 oz male 07/17/2016 38 weeks gestation 7 lb 5 oz male 07/08/2019 38 week gestation 6 lb 5 oz male Evaluation Evaluation Baseline heart rate: 120 Variability: Moderate (11-25) monitor accelerations: Present Monitor Decelerations: Absent Contraction Frequency (minutes): 3 Uterine Contraction Intensity: Strong/Firm Category of Tracing: Reactive Status: Category l Cervical dilation (cm): 5 Cervical effacement (%): 80 station: -2 [facility] Medical History Anemia Back pain Depression Family history of heart disease HSV (herpes simplex virus) anogenital infection (~2014) Nose fracture Otitis media Pharyngitis Right shoulder strain (spontaneous vaginal delivery) (~05/04/15) (spontaneous vaginal delivery) (~07/17/16) (spontaneous vaginal delivery) (~07/08/19) Vaginal delivery Family History Mother Hyperlipidemia Hypertension Pre-diabetes Depression Anxiety Father Family estrangement Unknown whether patient has any health problems Grandmother Diabetes mellitus Grandfather Cancer Grandmother Family estrangement Unknown whether patient has any health problems Grandfather Unknown whether patient has any health problems Family estrangement Sister Migraine Family/Other Primary cancer of bone marrow Other Family history of heart disease Social History marital status: number of children: 3 household members: spouse and children lives independently: Yes pets and animals: No education level: high school occupational status: employed current occupational exposures/hazards: Yes Previous occupational history: [facility] special berto needs: No seatbelt use: always helmet use: Yes working smoke detector in home: Yes fire extinguisher in home: Yes carbon monox detector in home: No firearms in home: Yes Smoking Status: Never smoker second hand exposure: No alcohol intake: former (pre- : occasional use ) substance use type: does not use during the past year weight has: increased > 10 lbs well-balanced diet: about half the time daily servings fruits/ve-1 caffeine: Yes eating out: 1-3 times/week Meds Home Medications and Allergies Home Medications Medication Instructions Recorded Confirmed Type vits no.126-ferrous fum 1 tab PO DAILY #90 tab 07/09/20 03/02/21 Rx 28 mg iron-folic acid 800 mcg tablet (Classic ) blood-glucose meter #1 ea 02/01/21 02/18/21 Rx lancets 30 gauge and blood glucose #100 ea 02/01/21 02/18/21 Rx strips combo pack Allergies Allergy/AdvReac Type Severity Reaction Status Date / Time No Known Drug Allergies Allergy Verified 12/02/20 11:38 Review of Systems Review of Systems Narrative: Patient denies headaches, scotomata, epigastric pain. Good movement. No leakage of fluid. Regular painful contractions. Exam Vital Signs (past 8 hours): - Blood pressure 125/76, temperature 36.2?, pulse is 70 03/02/21 08:52 Blood Pressure 123/74 Narrative Exam Narrative: HEENT exam within normal limits. Lungs are clear to auscultation percussion. Heart is regular rate and rhythm no S3-S4 murmurs. Abdomen is gravid. Fetus is vertex. Cervix is 5 cm dilated 80% effaced -2 station. Extremities without edema and nontender. Objective Labs Result Diagrams: 03/02/21 08:21 Labs: Laboratory Results - last 24 hr 03/02/21 03/02/21 03/02/21 08:01 08:21 08:21 WBC 10.4 RBC 4.56 Hgb 10.4 L Hct 33.2 L MCV 72.7 L MCH 22.7 L MCHC 31.2 RDW 17.7 H Plt Count 224 Neut % (Auto) 66.3 Lymph % (Auto) 26.5 [place] % (Auto) 6.4 Eos % (Auto) 0.4 L Baso % (Auto) 0.4 Neut # (Auto) 6900 Lymph # (Auto) 2700 [place] # (Auto) 700 Eos # (Auto) 0 Baso # (Auto) 0 SARS-CoV-2 (PCR) Negative Blood Type O Positive Antibody Screen Negative Assessment and Plan Assessment and Plan Assessment and Plan narrative: 38 week gestation in active labor. Patient requests epidural for pain control. Anticipate vaginal delivery.
--- NOTE | 2021-03-02 13:24 | PM.OBPRVD ---
Events: Gestational Diabetes (Diet-controlled) Labor & Delivery Delivery date: 03/02/21 Intrapartal Events: None Cervical ripening method: none Induction method: none Delivery monitor: external FHT and external uterine Route of delivery: L&D Laceration Description: None Estimated blood loss (mL): 100 Anesthesia Type: Epidural Narrative: Patient arrived on Labor and delivery in active labor. She received an epidural catheter for pain control. heart tones category 1 throughout labor. The patient delivered spontaneously, over an intact perineum. There was a tight nuchal cord. The viable female was placed on maternal abdomen. After the cord stopped pulsating the cord was clamped, cut, and cord bloods obtained. The placenta delivered spontaneously, intact, with 3 vessels. There were no cervical, vaginal, or perineal tears. Estimated blood loss 100 cc. Both infant mother doing well. Baby 1: Infant gender: Female Presentation: vertex Position: Right Occiput Anterior Placenta delivery description: Spontaneous Cord Vessel Description: Tight score (1 min): 9 score (5 min): 9 Plan for aftercare: Routine care
[2021-03-02 15:36] VITALS: TEMP 37.2
[2021-03-02] MEDS: DERMOPLAST SPRAY 20% 60 ML 1 SPRAY TOP (15:36)
[2021-03-02] MEDS: IBUPROFEN 600 MG TABLET PO ×2 (15:36→21:54)
[2021-03-02] MEDS: LANOLIN OINT 7 GM 1 APPLIC TOP (21:53)
[2021-03-03 06:27] LABS: Add Manual Diff / Slide Review NO; Basophils Absolute Auto 100 /uL (0-100); Basophils Percent Auto 0.9 % (0-2); Eosinophils Absolute Auto 100 /uL (0-450); Eosinophils Percent Auto 0.9 % (2-4); Hematocrit 29.5 % (36-46); Hemoglobin 9.2 g/dL (12.0-16.0); Lymphocytes Absolute Auto 3900 /uL (1100-4500); Lymphocytes Percent Auto 31.4 % (25-40); Mean Corpuscular HGB Conc 31.2 % (30-36); Mean Corpuscular Hemoglobin 22.6 PG (26-34); Mean Corpuscular Volume 72.5 fL (80-100); Monocytes Absolute Auto 900 /uL (0-900); Monocytes Percent Auto 7.7 % (3-14); Neutrophils Absolute Auto 7300 /uL (1500-7000); Neutrophils Percent Auto 59.1 % (50-75); Platelet Count 195 X10^3/uL (150-400); Red Blood Cell Count 4.07 X10^6/uL (4.0-5.2); Red Cell Distribution Width 18.1 % (11.6-14.8); White Blood Cell Count 12.4 X10^3/uL (4.5-11.0)
[2021-03-03] MEDS: DOCUSATE 100 MG CAPSULE PO (09:18)
[2021-03-03] MEDS: FERROUS SULFATE 325 MG TABLET PO (09:18)
--- NOTE | 2021-03-03 10:25 | P.DS_ITS ---
Discharge Providers Provider Date of admission: 03/02/21 05:08 Discharge Date: 03/03/21 Primary care physician: KACIE Almanzar Consults: 03/02/21 08:03 Consult to Anesthesiology Urgent Comment: Consulting Provider: Anesthesiologist Reason for consultation: Epidural Has provider been notified: No 03/03/21 13:23 Consult to Insurance Verification Rep Routine Comment: Discharge provider: Rhonda Beckwith MD Summary Hospital Course Date Patient Seen: 03/03/21 Time Patient Seen: 10:25 Diagnoses: 38 week gestation with spontaneous vaginal delivery Hospital Course: Patient arrived on Labor and delivery in active labor. She had a spontaneous vaginal delivery of a viable female infant. She is urinating and ambulating well. Breast-feeding without difficulty. Pain is under control. Peripartum Data Delivery Method: Natural Vaginal Laceration Description: None Procedures: Epidural catheter, spontaneous vaginal delivery complications: none 1: Gender: Female Disposition of : home Discharge Diagnosis (1) Vaginal delivery: Status: Acute Status at Discharge Cognitive/behavioral status at discharge: oriented Functional status at discharge: independent ambulation Overall status at discharge: patient is progressing back to baseline Time Spent with Patient Time attestation: Total time spent providing and/or coordinating discharge services: Time spent: Less than 30 minutes Objective Labs Result Diagrams: 03/03/21 06:18 Labs: Laboratory Results - last 24 hr 03/02/21 03/03/21 08:21 06:18 WBC 12.4 H RBC 4.07 Hgb 9.2 L Hct 29.5 L MCV 72.5 L MCH 22.6 L MCHC 31.2 RDW 18.1 H Plt Count 195 Neut % (Auto) 59.1 Lymph % (Auto) 31.4 [place] % (Auto) 7.7 Eos % (Auto) 0.9 L Baso % (Auto) 0.9 Neut # (Auto) 7300 H Lymph # (Auto) 3900 [place] # (Auto) 900 Eos # (Auto) 100 Baso # (Auto) 100 Blood Type O Positive Antibody Screen Negative Exam Vital Signs (past 8 hours): Blood pressure 108/71, pulse 78, temperature 98.4? Narrative Exam Narrative: Abdomen is soft, nontender. Uterus is firm, at U, nontender. Mild lochia. Extremities without edema and nontender. Patient is Rh positive, rubella immune, received Tdap in the 3rd trimester. Discharge Plan Discharge Plan Patient Disposition: Home Discharge orders & Medications Prescriptions: Continued Classic 28 mg iron- 800 mcg tablet 1 tab PO DAILY Qty: 90 RF: 3 Discontinued (DME) blood-glucose meter Misc See Rx Instructions .ROUTE .MEDSUPPLY Qty: 1 RF: 0 (DME) lancets-blood glucose strips 30 gauge combo pack See Rx Instructions .MEDSUPPLY Qty: 100 RF: 2 Follow up/Referrals: Rhonda Beckwith MD [Physician] - 1 Month Jesse Encarnacion ARNP [Primary Care Provider] - Diet/Activity/Treatments Diet: Regular Activity: Nothing in vagina for 6 weeks Skin/Wound/Dressing Care Report to your healthcare provider any signs of infection, such as:: chills, fever and increased pain Discharge Data Primary Care Provider: Jesse Encarnacion
[2021-03-03 11:03] VITALS: BP 114/64; PULSE 82; RESP 15; TEMP 36.8
== END 2021-03-03 11:35 | disposition home or self-care (01) | DRG 560 ==
PROVIDERS: Specialist; Admitting Provider Family Medicine; PCP Registered Nurse; Referring Provider Family Medicine; Visit Provider Family Medicine
DX: O24.420 Gestational diabetes mellitus in childbirth, diet controlled (principal); Z3A.38 38 weeks gestation of pregnancy; Z37.0 Single live birth; O69.81X0 Labor and delivery complicated by cord around neck, without compression, not applicable or unspecified
CPT/HCPCS: 01967; 36415; 59050; 59409; 85025; 86850; 86900; 86901; 87635; C9803; G0379

== ENCOUNTER → 2021-12-30 14:21 | Outpatient (CLI) | payer OTHER, MEDICAID, SELFPAY ==
[2021-12-30 15:15] LABS: Influenza A - CEPHEID Flu A NEGATIVE (NEGATIVE); Influenza B - CEPHEID Flu B NEGATIVE (NEGATIVE)
[2021-12-30 15:19] LABS: COVID-19 CEPHEID PCR (VTM/NP) Negative (Negative)
== END ==
PROVIDERS: PCP Registered Nurse; Visit Provider Student in an Organized Health Care Education/Training Program
DX: J32.9 Chronic sinusitis, unspecified (principal); R05.9 Cough, unspecified; Z20.822 Contact with and (suspected) exposure to COVID-19
CPT/HCPCS: 0240U

== ENCOUNTER → 2024-02-22 10:31 | Outpatient (CLI) | payer OTHER, MEDICAID, SELFPAY ==
[2024-02-22 12:50] LABS: Urine N gonorrhoeae NOT DETECTED
[2024-02-22 13:15] LABS: Urine Chlamydia NOT DETECTED
== END ==
PROVIDERS: Visit Provider Physician Assistant Medical
DX: R30.0 Dysuria (principal); N94.9 Unspecified condition associated with female genital organs and menstrual cycle
CPT/HCPCS: 87086; 87210; 87491; 87591

== ENCOUNTER → 2024-06-03 11:10 | Outpatient (CLI) | payer OTHER, SELFPAY | PROVIDERS: PCP Family Medicine; Visit Provider Nurse Practitioner Family | DX: J02.9 Acute pharyngitis, unspecified (principal) | CPT/HCPCS: 87070 ==

== ENCOUNTER → 2024-08-13 14:58 | Outpatient (CLI) | payer OTHER, SELFPAY ==
[2024-08-13 17:27] LABS: Pregnancy Test Urine Negative (Negative)
[2024-08-13 18:53] LABS: Urine N gonorrhoeae NOT DETECTED
[2024-08-13 19:03] LABS: Urine Chlamydia NOT DETECTED
[2024-08-15 04:41] LABS: RPR Screen Non Reactive (Non Reactive)
[2024-08-15 22:26] LABS: Hepatitis B Surface Antigen NEGATIVE s/c (NEGATIVE)
[2024-08-15 22:42] LABS: HIV 1 & 2 Ab/Ag 4th Gen Combo NEGATIVE (NEGATIVE); Hep C Virus Ab w/Reflex Quant NEGATIVE s/c (NEGATIVE)
== END ==
PROVIDERS: PCP Family Medicine; Referring Provider Nurse Practitioner Family; Visit Provider Nurse Practitioner Family
DX: N89.8 Other specified noninflammatory disorders of vagina (principal)
CPT/HCPCS: 81025; 86592; 86695; 86696; 86803; 87210; 87340; 87389; 87491; 87591

== ENCOUNTER → 2024-09-30 15:36 | Outpatient (CLI) | payer OTHER, SELFPAY ==
[2024-09-30 16:47] LABS: Influenza A - CEPHEID Flu A NEGATIVE (NEGATIVE); Influenza B - CEPHEID Flu B NEGATIVE (NEGATIVE); Respiratory Syncytial Virus Negative (Negative)
[2024-09-30 16:51] LABS: COVID-19 CEPHEID 4-PLEX PCR Negative (Negative)
== END ==
PROVIDERS: PCP Family Medicine; Visit Provider Nurse Practitioner Family
DX: R05.1 Acute cough (principal)
CPT/HCPCS: 0241U; 87070; 87147

== ENCOUNTER → 2024-10-24 09:58 | Outpatient (CLI) | payer OTHER, SELFPAY | LOC: LAB 10:44 | PROVIDERS: PCP Family Medicine; Visit Provider Family Medicine | DX: N39.0 Urinary tract infection, site not specified (principal) | CPT/HCPCS: 87086; 87147 ==

== ENCOUNTER → 2024-11-06 15:40 | Outpatient (CLI) | payer OTHER, SELFPAY | PROVIDERS: PCP Family Medicine; Visit Provider Chiropractor | DX: B37.31 Acute candidiasis of vulva and vagina (principal) | CPT/HCPCS: 87086; 87210 ==

== ENCOUNTER → 2024-11-19 09:31 | Outpatient (CLI) | payer OTHER, SELFPAY ==
[2024-11-19 11:44] LABS: Influenza A - CEPHEID Flu A NEGATIVE (NEGATIVE); Influenza B - CEPHEID Flu B NEGATIVE (NEGATIVE); Respiratory Syncytial Virus Negative (Negative)
[2024-11-19 11:45] LABS: COVID-19 CEPHEID 4-PLEX PCR Negative (Negative)
== END ==
PROVIDERS: PCP Family Medicine; Visit Provider Chiropractor
DX: J02.9 Acute pharyngitis, unspecified (principal)
CPT/HCPCS: 0241U

== ENCOUNTER → 2024-11-21 09:44 | Outpatient (CLI) | payer OTHER, SELFPAY | PROVIDERS: PCP Family Medicine; Visit Provider Family Medicine | DX: N89.8 Other specified noninflammatory disorders of vagina (principal); R10.2 Pelvic and perineal pain; Z11.3 Encounter for screening for infections with a predominantly sexual mode of transmission; R82.998 Other abnormal findings in urine; Z87.440 Personal history of urinary (tract) infections; Z87.09 Personal history of other diseases of the respiratory system; Z87.42 Personal history of other diseases of the female genital tract | CPT/HCPCS: 87086; 87210 ==

== ENCOUNTER → 2024-11-21 09:51 | Outpatient (CLI) | payer OTHER, SELFPAY ==
[2024-11-21 12:15] LABS: Hep C Virus Ab w/Reflex Quant NEGATIVE s/c (NEGATIVE)
[2024-11-21 12:16] LABS: HIV 1 & 2 Ab/Ag 4th Gen Combo NEGATIVE (NEGATIVE)
[2024-11-23 16:14] LABS: Treponema pallidum Antibodies Non Reactive (Non Reactive)
== END ==
PROVIDERS: PCP Family Medicine; Referring Provider Family Medicine; Visit Provider Family Medicine
DX: Z11.3 Encounter for screening for infections with a predominantly sexual mode of transmission (principal); R82.998 Other abnormal findings in urine; Z87.440 Personal history of urinary (tract) infections; Z87.09 Personal history of other diseases of the respiratory system; R10.2 Pelvic and perineal pain; N89.8 Other specified noninflammatory disorders of vagina; Z87.42 Personal history of other diseases of the female genital tract
CPT/HCPCS: 36415; 86780; 86803; 87077; 87086; 87210; 87389

== ENCOUNTER → 2024-12-25 15:49 | Outpatient (CLI) | payer OTHER, SELFPAY ==
[2024-12-25 16:26] LABS: Appearance Urine UA CLEAR; Bilirubin Urine UA NEGATIVE (NEGATIVE); Color Urine UA YELLOW; Glucose Urine UA NEGATIVE (Negative); Ketones Urine UA NEGATIVE (NEGATIVE); Leukocyte Esterase Urine UA 2+ (NEGATIVE); Nitrite Urine UA NEGATIVE (Negative); Occult Blood Urine UA NEGATIVE (Negative); Protein Urine UA NEGATIVE (Negative); Specific Gravity Urine UA <=1.005 (1.000-1.035); Urobilinogen Urine UA 0.2 E.U./dL (0.2); pH Urine UA 6.0 (4.5-8.0)
[2024-12-25 16:34] LABS: Culture Indicated Urine Specimen Cultured
== END ==
PROVIDERS: PCP Family Medicine; Visit Provider Family Medicine
DX: R30.0 Dysuria (principal); R82.998 Other abnormal findings in urine
CPT/HCPCS: 81003; 81015; 87086; 87147

== ENCOUNTER → 2025-03-14 15:57 | Outpatient (CLI) | payer OTHER, SELFPAY ==
[2025-03-17 10:36] LABS: Trichomoas vaginalis Negative (Negative)
== END ==
PROVIDERS: PCP Family Medicine; Visit Provider Student in an Organized Health Care Education/Training Program
DX: B37.31 Acute candidiasis of vulva and vagina (principal)
CPT/HCPCS: 81514

== ENCOUNTER → 2025-03-18 09:25 | Outpatient (CLI) | payer OTHER, SELFPAY ==
[2025-03-18 10:32] LABS: Influenza A - CEPHEID Flu A NEGATIVE (NEGATIVE); Influenza B - CEPHEID Flu B NEGATIVE (NEGATIVE)
[2025-03-18 10:33] LABS: COVID-19 CEPHEID 4-PLEX PCR Negative (Negative)
== END ==
PROVIDERS: PCP Family Medicine; Visit Provider Physician Assistant Medical
DX: R05.9 Cough, unspecified (principal); J02.9 Acute pharyngitis, unspecified
CPT/HCPCS: 87070; 87637

== ENCOUNTER → 2025-04-16 15:37 | Outpatient (CLI) | payer OTHER, SELFPAY | PROVIDERS: PCP Family Medicine; Visit Provider Nurse Practitioner Family | DX: N89.8 Other specified noninflammatory disorders of vagina (principal); R39.15 Urgency of urination | CPT/HCPCS: 87086; 87210 ==

== ENCOUNTER → 2025-06-03 10:20 | Outpatient (CLI) | payer OTHER, SELFPAY ==
[2025-06-03 11:12] LABS: Influenza A - CEPHEID Flu A NEGATIVE (NEGATIVE); Influenza B - CEPHEID Flu B NEGATIVE (NEGATIVE)
[2025-06-03 11:23] LABS: COVID-19 CEPHEID 4-PLEX PCR Negative (Negative)
== END ==
LOC: LAB 10:21
PROVIDERS: PCP Family Medicine; Visit Provider Chiropractor
DX: Z20.828 Contact with and (suspected) exposure to other viral communicable diseases (principal)
CPT/HCPCS: 87637